=== PATIENT | female | born 1995 | race American Indian/Alaskan Native ===

== ENCOUNTER 2020-11-10 09:12 | Emergency (ER) | payer OTHER ==
--- NOTE | 2020-11-10 09:51 | Emergency Department Report ---
ED Headache HPI - General Stated Complaint: MIGRAINE, EYE PAIN Time Seen by Provider: 11/10/20 09:50 Source: patient Exam Limitations: no limitations - History of Present Illness Initial Comments: 24 yo comes in with 2 day history of severe headache. Hx migraines. OTC meds have been no relief No light sensitivity. No vomiting. No nausea Denies trauma/fall/abuse Denies fever/chills/ cough/congestion/sore throat She comes to ER via POV - crying in pain. She is ambulatory and neuro intact. Timing/Duration: 24 hours Quality: severe Head Injury Location: global Recent Head Trauma: no recent headache/trauma, other Modifying Factors: worse with: cold therapy, exposure to light, immobilization, medication, movement, rest, other Associated Symptoms: denies symptoms, other (chest pain). denies: confusion, fatigue, facial pain, fever/chills, flushing, loss of consciousness, nausea/vomiting, nasal congestion, nasal drainage, numbness in legs/feet, rash, seizures, sinus infection, stiff neck, vision changes, weakness Allergies/Adverse Reactions: Allergies shellfish derived Allergy (Verified 11/10/20 09:52) Anaphylaxis Home Medications: Ambulatory Orders Amoxicillin [Trimox CAP] 500 mg PO Q8H #30 capsule 11/10/20 Fluticasone [Flonase] 1 spray NS QDAY #1 bottle 11/10/20 predniSONE [Deltasone] 20 mg PO DAILY #5 tablet 11/10/20 ED Review of Systems ROS: Stated complaint: MIGRAINE, EYE PAIN Other details as noted in HPI Comment: All other systems reviewed and negative ED Past Medical Hx - Past Medical History Previous Medical History?: Yes Additional medical history: migraine - Family History Family history: no significant - Social History Smoking Status: Never Smoker Substance Use Type: Alcohol, Marijuana - Medications Home Medications: Home Medications Medication Instructions Recorded Confirmed Last Taken Type Amoxicillin [Trimox CAP] 500 mg PO Q8H #30 capsule 11/10/20 Unknown Rx Fluticasone [Flonase] 1 spray NS QDAY #1 bottle 11/10/20 Unknown Rx predniSONE [Deltasone] 20 mg PO DAILY #5 tablet 11/10/20 Unknown Rx ED Physical Exam - General Limitations: No Limitations General appearance: alert, in no apparent distress - Head Head exam: Present: atraumatic, normocephalic - Eye Eye exam: Present: normal appearance - ENT ENT exam: Present: normal exam, normal orophraynx, mucous membranes moist, TM's normal bilaterally, normal external ear exam, other (no sinus tendernes- frontal or maxillary ). Absent: mucous membranes dry - Expanded ENT Exam Expanded Ear exam: Present: normal external inspection Mouth exam: Present: normal external inspection Teeth exam: Present: normal inspection Throat exam: Positive: normal inspection - Neck Neck exam: Present: normal inspection. Absent: lymphadenopathy - Respiratory Respiratory exam: Present: normal lung sounds bilaterally. Absent: respiratory distress - Cardiovascular Cardiovascular Exam: Present: regular rate, normal rhythm. Absent: systolic murmur, diastolic murmur, rubs, gallop - GI/Abdominal GI/Abdominal exam: Present: soft, normal bowel sounds - Extremities Exam Extremities exam: Present: normal inspection - Back Exam Back exam: Present: normal inspection - Neurological Exam Neurological exam: Present: alert, oriented X3 - Psychiatric Psychiatric exam: Present: normal affect, normal mood - Skin Skin exam: Present: warm, dry, intact, normal color. Absent: rash ED Course Vital Signs 11/10/20 09:52 Temperature 97.9 F Pulse Rate 111 H Respiratory 16 Rate Blood Pressure 111/74 [Right] O2 Sat by Pulse 100 Oximetry - Reevaluation(s) Reevaluation #1: 11/10/20 12:00 on reexam p fiorocet and motrin pt crying she states head hurts more she was reinterviewed and continues to deny trauma/abuse etc. her pain seems out of proportion to the complaint. will do CT scan to ensure no intracranial process HR 90 on provider exam ED Medical Decision Making - Radiology Data Radiology results: report reviewed nap - Medical Decision Making Vital Signs 11/10/20 09:52 Temperature 97.9 F Pulse Rate 111 H Respiratory 16 Rate Blood Pressure 111/74 [Right] O2 Sat by Pulse 100 Oximetry fiorocet/motrin with inc pain decadron IM CT scan - see report; suggestive of sinusitus. Pt dc home with tx for sinusitus. She verbalizes understanding of dc plan of care including meds, diet, activity and follow up. On d/c she is neuro intact, taking po and ambulatory - Differential Diagnosis trauma/migraine/sinus/stress headache Critical care attestation.: If time is entered above; I have spent that time in minutes in the direct care of this critically ill patient, excluding procedure time. ED Disposition Clinical Impression: Headache, Sinusitis Disposition: 01 HOME / SELF CARE / HOMELESS Is pt being admited?: No Does the pt Need Aspirin: No Condition: Stable Instructions: Sinusitis, Adult, [id number] Additional Instructions: meds as ordered follow up with pcp next week for recheck referral below motrin and tylenol can be used for pain Prescriptions: predniSONE [Deltasone] 20 mg PO DAILY #5 tablet Fluticasone [Flonase] 1 spray NS QDAY #1 bottle Amoxicillin [Trimox CAP] 500 mg PO Q8H #30 capsule Referrals: PRIMARY CAREMD [Primary Care Provider] - 3-5 Days DAIN MAY MD [Staff Physician] - 3-5 Days Time of Disposition: 12:41
[2020-11-10] MEDS ORDERED: IBUPROFEN 800 MG TAB PO SCH (10:00)
[2020-11-10] MEDS ORDERED: BUTALB/ACETAMINOPHEN/CAFFEINE TAB PO SCH (10:00)
[2020-11-10] MEDS ORDERED: IBUPROFEN 800 MG TAB PO ONE (10:59)
[2020-11-10] MEDS ORDERED: BUTALB/ACETAMINOPHEN/CAFFEINE TAB PO ONE (10:59)
[2020-11-10] MEDS ORDERED: dexAMETHasone 4 MG/ML VIAL IV ONE (11:32)
--- NOTE | 2020-11-10 12:16 | Cat Scan Report ---
CT head/brain wo con INDICATION / CLINICAL INFORMATION: 24 years Female; peristent headache refractory to meds. TECHNIQUE: Routine CT head without contrast. All CT scans at this location are performed using CT dos e reduction for ALARA by means of automated exposure control. COMPARISON: None. FINDINGS: BRAIN / INTRACRANIAL CONTENTS: The beam hardening degrades image quality at. However, the brain appea rs to demonstrate appropriate attenuation. The ventricular system is within normal limits in size and configuration. There is no clear CT evidence of acute intracranial hemorrhage or significant mass ef fect. ORBITS: No significant abnormality of visualized orbits. SINUSES / MASTOIDS: There is moderate mucosal thickening within the right maxillary sinus. Milder fin dings are seen on the left as well as throughout the ethmoid air cells. CRANIOCERVICAL JUNCTION: No significant abnormality. ADDITIONAL FINDINGS: None. IMPRESSION: 1. There is no CT evidence of acute intracranial process. 2. There is sinus inflammatory disease as detailed above. Signer Name: Michele Kirkpatrick MD Signed: 11/10/2020 12:11 PM Workstation Name: [id number]
[2020-11-10 13:16] VITALS: BP 103/67
== END 2020-11-10 13:15 | disposition home or self-care (01) ==
LOC: ED 09:12
DX: G43.909 Migraine, unspecified, not intractable, without status migrainosus (principal); J32.9 Chronic sinusitis, unspecified; F12.90 Cannabis use, unspecified, uncomplicated; Z72.89 Other problems related to lifestyle; Z91.013 Allergy to seafood; Z79.899 Other long term (current) drug therapy
CPT/HCPCS: 70450; 99283